=== PATIENT | female | born 1965 | race Hispanic/Latino ===

== ENCOUNTER 2023-04-02 10:52 | Outpatient (CLI) | payer OTHER | END 2023-04-02 10:53 | disposition home or self-care (01) | LOC: CSHCP 10:52 | PROVIDERS: ATTEND Chiropractor | DX: J45.909 Unspecified asthma, uncomplicated (principal) | CPT/HCPCS: 94060; 94760 ==

== ENCOUNTER 2023-09-05 14:38 | Outpatient (CLI) | payer OTHER | END 2023-09-05 14:39 | disposition home or self-care (01) | LOC: CSHMRI 14:38 | PROVIDERS: ATTEND Family Medicine | DX: N64.4 Mastodynia (principal); N60.01 Solitary cyst of right breast; N60.02 Solitary cyst of left breast; R92.333 Mammographic heterogeneous density, bilateral breasts | CPT/HCPCS: C8908 ==